=== PATIENT | female | born 1980 | race Caucasian/White ===

== ENCOUNTER 2021-04-16 20:36 | Emergency (ER) | payer MEDICAID ==
[2021-04-16 23:27] LABS: BLOOD UREA NITROGEN,BUN 10 mg/dL (7.0-18.0); CARBON DIOXIDE,CO2 24.8 mmol/L (21.0-32.0); CHLORIDE,CL 104 mmol/L (98-107); GLUCOSE RANDOM 107 mg/dL (74-106); POTASSIUM,K 3.7 mmol/L (3.5-5.1); SODIUM,NA 138 mmol/L (136-145)
== END 2021-04-17 00:43 | disposition home or self-care (01) ==
LOC: MW.ED 20:36
DX: R07.89 Other chest pain (principal); Z88.5 Allergy status to narcotic agent
CPT/HCPCS: 36415; 71045; 71045-26; 80053; 84484; 85025; 93005; 99285-25

== ENCOUNTER 2021-04-20 07:43 | Emergency (ER) | payer MEDICAID ==
[2021-04-20] MEDS ORDERED: Sodium Chloride 0.9% 10 ML Syringe FLUSH PRN (08:00)
[2021-04-20] MEDS ORDERED: Sodium Chloride 0.9% 2.5 ML Syringe FLUSH PRN (08:00)
[2021-04-20 10:20] LABS: BLOOD UREA NITROGEN,BUN 11 mg/dL (7.0-18.0); CARBON DIOXIDE,CO2 23.2 mmol/L (21.0-32.0); CHLORIDE,CL 106 mmol/L (98-107); GLUCOSE RANDOM 117 mg/dL (74-106); POTASSIUM,K 3.6 mmol/L (3.5-5.1); SODIUM,NA 141 mmol/L (136-145)
[2021-04-20] MEDS ORDERED: Iopamidol 755 MG/ML 500 ML Multipack Bottle IVPUSH STA (10:54)
== END 2021-04-20 12:11 | disposition home or self-care (01) ==
LOC: MW.ED 07:43
DX: S19.9XXA Unspecified injury of neck, initial encounter (principal); Z88.5 Allergy status to narcotic agent
CPT/HCPCS: 36415; 70498; 80048; 84703; 99284; Q9967

== ENCOUNTER 2022-04-04 13:12 | Emergency (ER) | payer MEDICAID ==
[2022-04-04] MEDS ORDERED: Albuterol/Ipratropium 3.0-0.5 MG/3 ML Neb Soln NEB ONE (14:21)
[2022-04-04] MEDS ORDERED: predniSONE 20 MG Tab PO ONE (14:45)
[2022-04-04 14:50] LABS: CORONAVIRUS COVID-19 NAA NEGATIVE (NEGATIVE); INFLUENZA A NAA NEGATIVE (NEGATIVE); INFLUENZA B NAA NEGATIVE (NEGATIVE); RESPIRATORY SYNCYTIAL VIR NAA NEGATIVE (NEGATIVE)
[2022-04-05] MEDS ORDERED: predniSONE 10 MG Tab PO ONE (14:21)
== END 2022-04-04 16:06 | disposition home or self-care (01) ==
LOC: MW.ED 13:12
DX: J45.909 Unspecified asthma, uncomplicated (principal); Z88.5 Allergy status to narcotic agent; Z86.16 Personal history of COVID-19; Z20.822 Contact with and (suspected) exposure to COVID-19
CPT/HCPCS: 0241U; 87651; 94640; 99285; A9270; J7620-GY

== ENCOUNTER 2022-05-07 23:52 | Emergency (ER) | payer MEDICAID ==
[2022-05-08 00:45] LABS: CARBON DIOXIDE,CO2 26.9 mmol/L (21.0-32.0)
[2022-05-08] MEDS ORDERED: Iopamidol 755 MG/ML 500 ML Multipack Bottle IVPUSH ONE (01:30)
== END 2022-05-08 04:05 | disposition home or self-care (01) ==
LOC: MW.ED 23:52
DX: R07.89 Other chest pain (principal); Z88.5 Allergy status to narcotic agent; Z86.16 Personal history of COVID-19; Z20.822 Contact with and (suspected) exposure to COVID-19
CPT/HCPCS: 36415; 71045; 71275; 80053; 83880; 84484; 84703; 85025; 85379; 87635; 93005; 93971; 99285; Q9967; 93010; 99284; U0002

== ENCOUNTER 2023-03-14 12:15 | Emergency (ER) | payer MEDICAID ==
[2023-03-14] MEDS ORDERED: Albuterol/Ipratropium 3.0-0.5 MG/3 ML Neb Soln NEB ONE (13:18)
[2023-03-14 14:27] LABS: CORONAVIRUS COVID-19 NAA NEGATIVE (NEGATIVE); INFLUENZA A NAA NEGATIVE (NEGATIVE); INFLUENZA B NAA NEGATIVE (NEGATIVE)
== END 2023-03-14 15:18 | disposition home or self-care (01) ==
LOC: MW.ED 12:15
DX: J45.901 Unspecified asthma with (acute) exacerbation (principal); Z20.822 Contact with and (suspected) exposure to COVID-19; Z86.16 Personal history of COVID-19; Z88.5 Allergy status to narcotic agent; Z90.49 Acquired absence of other specified parts of digestive tract
CPT/HCPCS: 0240U; 71045; 99285; 99283; J7620-GY

== ENCOUNTER 2023-04-18 14:38 | Emergency (ER) | payer MEDICAID ==
[2023-04-18] MEDS ORDERED: Albuterol/Ipratropium 3.0-0.5 MG/3 ML Neb Soln NEB ONE (16:12)
[2023-04-18] MEDS ORDERED: methylPREDNISolone Sodium Succinate 125 MG/2 ML SDV IM ONE (16:13)
== END 2023-04-18 17:07 | disposition home or self-care (01) ==
LOC: MW.ED 14:38
DX: J45.901 Unspecified asthma with (acute) exacerbation (principal); Z88.5 Allergy status to narcotic agent; Z86.16 Personal history of COVID-19; Z79.899 Other long term (current) drug therapy
CPT/HCPCS: 96372; 99284; J2930; 99283; J7620-GY